=== PATIENT | male | born 1975 | race African-American/Black ===

== ENCOUNTER 2021-06-20 09:39 | Observation (INO) | payer OTHER, BC ==
[2021-06-20] MEDS ORDERED: SODIUM CHLORIDE 0.9% 1000 ML INFUS.BAG IV ONE (10:50)
[2021-06-20 11:34] LABS: BASO % 0.7 % (0-2.0); EOS % 1.5 % (0-4.5); HEMOGLOBIN 15.4 GM/dL (11.7-16.9); LYMPH % 31.1 % (8-40); MCH 29.4 pg (25.7-33.7); MCHC 33.4 g/dl (32.0-35.9); MEAN CELL VOLUME 88.2 fl (80-96); MEAN PLT VOLUME 8.6 fl (7.5-11.1); MONO % 7.1 % (3.8-10.2); NEUT % 59.6 % (42.8-82.8); PLATELET COUNT 154 10^3/uL (134-434); RBC 5.22 M/mm3 (4.00-5.60); WHITE BLOOD COUNT 5.5 K/mm3 (4.0-10.0)
[2021-06-20 12:02] LABS: ALBUMIN 3.9 g/dl (3.4-5.0); CALCIUM 9.3 mg/dL (8.5-10.1)
[2021-06-20 12:03] LABS: BLOOD UREA NITROGEN 9.9 mg/dL (7-18)
[2021-06-20 12:05] LABS: CREATININE 0.9 mg/dL (0.55-1.3)
[2021-06-20 12:07] LABS: BILIRUBIN,TOTAL 0.6 mg/dL (0.2-1); TOT PROT 7.1 g/dl (6.4-8.2)
[2021-06-20 19:37] LABS: PH,URINE 5.5 (5.0-8.0); URINE APPEARANCE CLEAR; URINE BILIRUBIN NEGATIVE (NEGATIVE); URINE COLOR YELLOW; URINE GLUCOSE (UA) NEGATIVE (NEGATIVE); URINE KETONE TRACE (NEGATIVE); URINE LEUK ESTERASE NEGATIVE (NEGATIVE); URINE NITRITE NEGATIVE (NEGATIVE); URINE PROTEIN NEGATIVE (NEGATIVE)
[2021-06-20 22:42] VITALS: BMI 36.8
[2021-06-21 07:38] LABS: HEMATOCRIT 43.4 % (35.4-49); HEMOGLOBIN 14.1 GM/dL (11.7-16.9); MCHC 32.4 g/dl (32.0-35.9); MEAN CELL VOLUME 89.5 fl (80-96); MEAN PLT VOLUME 9.5 fl (7.5-11.1); PLATELET COUNT 150 10^3/uL (134-434); RBC 4.85 M/mm3 (4.00-5.60); RDW 14.6 % (11.9-15.9); WHITE BLOOD COUNT 6.4 K/mm3 (4.0-10.0)
[2021-06-21 07:50] LABS: BLOOD UREA NITROGEN 10.9 mg/dL (7-18); CALCIUM 8.8 mg/dL (8.5-10.1); MAGNESIUM 2.1 mg/dL (1.8-2.4)
[2021-06-21 07:54] LABS: CREATININE 0.9 mg/dL (0.55-1.3); PHOSPHOROUS 4.2 mg/dL (2.5-4.9)
[2021-06-21] MEDS: ENOXAPARIN NA (PORCINE) 40 MG/0.4 ML DISP.SYRIN SQ SCH (10:21)
[2021-06-22] MEDS: ENOXAPARIN NA (PORCINE) 40 MG/0.4 ML DISP.SYRIN SQ SCH (09:33)
[2021-06-23 06:12] VITALS: TEMP 98.4
[2021-06-23] MEDS: ENOXAPARIN NA (PORCINE) 40 MG/0.4 ML DISP.SYRIN SQ SCH (09:11)
[2021-06-23 15:22] VITALS: BP 140/96; PULSE 67
== END 2021-06-23 18:40 | disposition home or self-care (01) ==
LOC: JER 09:39 → JERBED 14:29 → J4W 20:20
PROVIDERS: ADMIT Internal Medicine
PROC: 3E023GC Introduction of Other Therapeutic Substance into Muscle, Percutaneous Approach (ICD-10-PCS; principal; 2021-06-20)
PROC: 3E0337Z Introduction of Electrolytic and Water Balance Substance into Peripheral Vein, Percutaneous Approach (ICD-10-PCS; 2021-06-20)
DX: I95.1 Orthostatic hypotension (principal); I10 Essential (primary) hypertension; E66.9 Obesity, unspecified; Z68.36 Body mass index [BMI] 36.0-36.9, adult; F17.210 Nicotine dependence, cigarettes, uncomplicated; Z88.8 Allergy status to other drugs, medicaments and biological substances
CPT/HCPCS: 36415; 70450-TC; 71045-TC-FY; 80048; 80053; 80061; 81003; 83036; 83735; 84100; 84439; 84443; 84484; 85025; 85027; 93005; 93010; 93306-TC; 93880-TC; 99285-25; C9803-CS; G0378; U0003; U0005

== ENCOUNTER 2023-07-26 14:48 | Emergency (ER) | payer BC ==
[2023-07-26 15:11] VITALS: BP 130/91; PULSE 78; RESP 17; TEMP 97.8; BMI 39.3
[2023-07-26] MEDS ORDERED: ACETAMINOPHEN 325 MG TABLET (FP) ONE (15:51)
[2023-07-26] MEDS ORDERED: METHOCARBAMOL 500 MG TABLET ONE (15:51)
[2023-07-26] MEDS ORDERED: LIDOCAINE 4% PATCH TP ONE (15:51)
[2023-07-26] MEDS: LIDOCAINE 5% TOPICAL PATCH TP ONE (15:56)
[2023-07-26] MEDS: ACETAMINOPHEN 500 MG TABLET (FP) PO ONE ×2 (15:56→16:34)
[2023-07-26] MEDS: METHOCARBAMOL 500 MG TABLET PO ONE (15:56)
== END 2023-07-26 17:09 | disposition home or self-care (01) ==
LOC: JERFT 14:48
DX: M54.50 Low back pain, unspecified (principal)
CPT/HCPCS: 99283-25

== ENCOUNTER 2023-08-02 12:35 | Emergency (ER) | payer BC ==
[2023-08-02 12:52] VITALS: BMI 39.3
[2023-08-02] MEDS ORDERED: diazePAM 5 MG TABLET ONE (13:31)
[2023-08-02] MEDS ORDERED: KETOROLAC TROMETHAMINE 30 MG/1 ML VIAL ONE (13:31)
[2023-08-02] MEDS: KETOROLAC TROMETHAMINE 30 MG/1 ML VIAL IM ONE (13:38)
[2023-08-02] MEDS: diazePAM 5 MG TABLET PO ONE (13:39)
[2023-08-02 14:55] VITALS: BP 140/78; PULSE 72; RESP 14; TEMP 98.3
== END 2023-08-02 14:57 | disposition home or self-care (01) ==
LOC: JER 12:35
PROC: 3E023GC Introduction of Other Therapeutic Substance into Muscle, Percutaneous Approach (ICD-10-PCS; principal; 2023-08-02)
DX: M54.16 Radiculopathy, lumbar region (principal); M79.661 Pain in right lower leg
CPT/HCPCS: 72100-TC-FY; 99284-25

== ENCOUNTER 2023-11-25 10:04 | Emergency (ER) | payer BC ==
[2023-11-25 10:29] VITALS: TEMP 98.3; BMI 43.4
[2023-11-25] MEDS ORDERED: LIDOCAINE 4% PATCH TP ONE (10:35)
[2023-11-25] MEDS: LIDOCAINE 4% PATCH TP ONE (10:54)
[2023-11-25] MEDS ORDERED: KETOROLAC TROMETHAMINE 30 MG/1 ML VIAL ONE (10:56)
[2023-11-25] MEDS ORDERED: METHOCARBAMOL 500 MG TABLET ONE (10:56)
[2023-11-25 11:05] LABS: EPI CELLS 2 /uL (0-25.1); HYALINE CASTS 0 /uL (0-3.1); PH,URINE 5.5 (5.0-8.0); URINE APPEARANCE CLEAR; URINE BACTERIA 15 /uL (0-1359); URINE BILIRUBIN NEGATIVE (NEGATIVE); URINE COLOR YELLOW; URINE GLUCOSE (UA) NEGATIVE (NEGATIVE); URINE KETONE NEGATIVE (NEGATIVE); URINE LEUK ESTERASE NEGATIVE (NEGATIVE); URINE NITRITE NEGATIVE (NEGATIVE); URINE PROTEIN NEGATIVE (NEGATIVE); URINE RBC 54 /uL (0-23.9); URINE WBC 4 /uL (0-25.8)
[2023-11-25] MEDS: METHOCARBAMOL 500 MG TABLET PO ONE (11:21)
[2023-11-25] MEDS: KETOROLAC TROMETHAMINE 30 MG/1 ML VIAL IM ONE (11:21)
[2023-11-25] MEDS: SODIUM CHLORIDE 0.9% 1000 ML INFUS.BAG IV ONE (12:01)
[2023-11-25 12:14] LABS: BASO % 0.8 % (0-2.0); EOS % 2.2 % (0-4.5); HEMATOCRIT 42.9 % (35.4-49); HEMOGLOBIN 13.9 GM/dL (11.7-16.9); LYMPH % 32.3 % (8-40); MCH 29.3 pg (25.7-33.7); MCHC 32.5 g/dl (32.0-35.9); MEAN PLT VOLUME 8.7 fl (7.5-11.1); MONO % 6.1 % (3.8-10.2); NEUT % 58.6 % (42.8-82.8); PLATELET COUNT 143 10^3/uL (134-434); RBC 4.76 M/mm3 (4.00-5.60); RDW 14.4 % (11.9-15.9); WHITE BLOOD COUNT 6.4 K/mm3 (4.0-10.0)
[2023-11-25 12:22] LABS: INR 1.23 (0.83-1.09); PROTHROMBIN TIME (PATIENT) 13.8 SEC (9.7-13.0)
[2023-11-25 12:24] LABS: ACTIVATED PTT 33.5 SECONDS (25.2-36.5)
[2023-11-25 12:32] LABS: POTASSIUM 3.7 mmol/L (3.5-5.1)
[2023-11-25 12:33] LABS: CALCIUM 9.1 mg/dL (8.5-10.1)
[2023-11-25 12:34] LABS: ALBUMIN 3.4 g/dl (3.4-5.0); BLOOD UREA NITROGEN 10.9 mg/dL (7-18)
[2023-11-25 12:37] LABS: CREATININE 0.9 mg/dL (0.55-1.3)
[2023-11-25 12:39] LABS: BILIRUBIN,TOTAL 0.5 mg/dL (0.2-1); TOT PROT 6.7 g/dl (6.4-8.2)
[2023-11-25 13:08] VITALS: BP 133/70; PULSE 68; RESP 16
[2023-11-25 13:49] LABS: HIV INTERPRETATION NEGATIVE (NEGATIVE)
[2023-11-25] MEDS ORDERED: LIDOCAINE PATCH REMOVAL MC SCH (22:00)
== END 2023-11-25 13:06 | disposition home or self-care (01) ==
LOC: JER 10:04
PROC: 3E0233Z Introduction of Anti-inflammatory into Muscle, Percutaneous Approach (ICD-10-PCS; principal; 2023-11-25)
DX: N20.0 Calculus of kidney (principal); M54.50 Low back pain, unspecified; G89.29 Other chronic pain
CPT/HCPCS: 36415; 76775-TC; 80053; 81003; 85025; 85610; 85730; 86803; 87389; 99284-25

== ENCOUNTER 2024-09-09 10:24 | Emergency (ER) | payer BC ==
[2024-09-09 10:51] VITALS: RESP 16; TEMP 97; BMI 38.0
[2024-09-09] MEDS ORDERED: ACETAMINOPHEN 500 MG TABLET (FP) ONE (11:14)
[2024-09-09] MEDS: ACETAMINOPHEN 500 MG TABLET (FP) PO ONE (11:17)
[2024-09-09] MEDS ORDERED: KETOROLAC TROMETHAMINE 15 MG/ML VIAL IVPUSH ONE (14:11)
[2024-09-09 14:41] LABS: EPI CELLS 2 /uL (0-25.1); HYALINE CASTS 0 /uL (0-3.1); URINE APPEARANCE CLEAR; URINE BACTERIA 18 /uL (0-1359); URINE BILIRUBIN NEGATIVE (NEGATIVE); URINE COLOR DK YELLOW; URINE GLUCOSE (UA) NEGATIVE (NEGATIVE); URINE KETONE TRACE (NEGATIVE); URINE LEUK ESTERASE NEGATIVE (NEGATIVE); URINE NITRITE NEGATIVE (NEGATIVE); URINE PROTEIN 1+ (NEGATIVE); URINE RBC 12 /uL (0-23.9); URINE WBC 4 /uL (0-25.8)
[2024-09-09] MEDS ORDERED: KETOROLAC TROMETHAMINE 15 MG/ML VIAL ONE (15:13)
[2024-09-09 15:24] VITALS: BP 136/79; PULSE 74
== END 2024-09-09 16:19 | disposition home or self-care (01) ==
LOC: JER 10:24
DX: M54.50 Low back pain, unspecified (principal)
CPT/HCPCS: 74176-TC; 81003; 87086; 99284-25